=== PATIENT | female | born 1945 | race Caucasian/White ===

== ENCOUNTER → 2016-05-21 17:08 | Outpatient (CLI) | payer MEDICARE ==
[2010-07-24 06:50] VITALS: BMI 35.2
== END | disposition home or self-care (01) ==
LOC: D.MAMMO 10:45
DX: Z12.31 Encounter for screening mammogram for malignant neoplasm of breast (principal)

== ENCOUNTER 2016-07-03 17:02 | Emergency (ER) | payer MEDICARE ==
[2010-07-24 06:50] VITALS: BMI 35.2
[2016-07-03 19:07] LABS: BASOPHILS 0.2 % (0.0-2.0); EOSINOPHILS 0.2 % (0-7); HEMATOCRIT 43.3 % (36.0-48.0); HEMOGLOBIN 14.2 g/dL (12-16); IMMATURE GRANULOCYTES 0.2 % (0-5); LYMPHOCYTES 12.8 % (15-50); MCH 29.6 pg (26.0-34.0); MCHC 32.8 g/dL (31.0-37.0); MCV 90.4 fL (80.0-100.0); MEAN PLATELET VOLUME 10.7 fL (7.4-10.4); MONOCYTES 2.3 % (2-11); NEUTROPHILS 84.3 % (40-80); PLATELET COUNT 241 10x3/uL (130-400); RBC 4.79 10x6/uL (4.00-5.40); RDW 12.8 % (11.5-14.5); WBC 11.1 10x3/uL (4.8-10.8)
[2016-07-03 19:20] LABS: APPEARANCE CLOUDY (CLEAR); BILIRUBIN NEGATIVE (NEGATIVE); COLOR YELLOW (YELLOW); GLUCOSE NEGATIVE (NEGATIVE); KETONE SMALL mg/dL (NEGATIVE); LEUKOCYTE ESTERASE NEGATIVE (NEGATIVE); NITRITE NEGATIVE (NEGATIVE); PROTEIN TRACE mg/dL (NEGATIVE); SPECIFIC GRAVITY 1.025 (1.005-1.020); UROBILINOGEN NORMAL (NORMAL)
[2016-07-03 19:22] LABS: AMORPHOUS SEDIMENT >1+ /lpf (NONE SEEN); BACTERIA MODERATE /hpf (NONE SEEN); EPITHELIAL CELLS 0-5 /hpf (0-5); MUCUS <1+ /lpf (NONE SEEN); RED CELLS - URINE 0-5 /hpf (0-5); WHITE CELLS - URINE 0-5 /hpf (0-5)
[2016-07-03 19:35] LABS: ALBUMIN 4.3 g/dL (3.4-5.0); ALKALINE PHOSPHATASE 64 U/L (46-116); ALT (SGPT) 28 U/L (10-68); AMYLASE - SERUM 59 U/L (25-115); BILIRUBIN - TOTAL 0.41 mg/dL (0.2-1.3); CALC OSMOLALITY 290 mosm/kg (275-300); CALCIUM 9.2 mg/dL (8.5-10.1); CARBON DIOXIDE 27.3 mmol/L (21.0-32.0); CHLORIDE - SERUM 103 mmol/L (98-107); CREATININE - SERUM 0.7 mg/dL (0.6-1.3); GLUCOSE 164 mg/dL (74-106); LIPASE 302 U/L (73-393); POTASSIUM - SERUM 3.7 mmol/L (3.5-5.1); PROTEIN - SERUM 7.4 g/dL (6.4-8.2); SODIUM 142 mmol/L (136-145); UREA NITROGEN 24 mg/dL (7-18); eGFR NON AFRICAN AMERICAN 88 mL/min (90-120)
== END 2016-07-03 21:13 | disposition home or self-care (01) ==
LOC: D.ER 17:02
PROVIDERS: Nurse Practitioner Family
DX: K52.9 Noninfective gastroenteritis and colitis, unspecified (principal); E86.0 Dehydration; R11.10 Vomiting, unspecified; E11.9 Type 2 diabetes mellitus without complications; I10 Essential (primary) hypertension

== ENCOUNTER → 2017-04-06 08:43 | Outpatient (CLI) | payer MEDICARE ==
[2010-07-24 06:50] VITALS: BMI 35.2
--- NOTE | 2017-04-14 12:15 | EC ---
PATIENT:MIKEY COLEMAN DATE OF SERVICE: 04/06/17 SEX: F MEDICAL RECORD: [id number] DATE OF : [birth year] LOCATION:D[facility] AGE OF PATIENT: 71 ADMISSION DATE: 04/06/17 REFERRING PHYSICIAN: INTERPRETING PHYSICIAN: SUSAN BOSE MD ECHOCARDIOGRAM REPORT ECHO CHARGES 4 ECHO COMPLETE CLINICAL DIAGNOSIS: PALPITATIONS ECHOCARDIOGRAPHIC MEASUREMENTS (adult normal given) AC root (d.<3.7cm) 3.1 cm LV Septum d (<1.2 cm> 1.3 cm Valve Excursion 2.0 cm LV Septum (systole) 2.2 cm Left Atria (s.<4.0cm> 4.5 cm LVPW d(<1.2cm) 1.3 cm RV (d.<2.3cm) 3.0 cm LVPW (sytole) 2.1 cm LV diastole(<5.6CM) 4.6 cm MV E-F(>70mm/sec) cm LV systole 2.0 cm LVOT Diameter 1.9 cm MV exc.(>10mm) cm Est.ejection fraction (50-75%) % Pericardial Effusion N DOPPLER: LVIT cm/sec A 54.0 cm/sec E 63.0 cm/sec LA cm/sec RVSP 33.0 mmHg LVOT 114 cm/sec AOP1/2T m/s Asc. Ao 136 cm/sec RVOT 64.0 cm/sec RA cm/sec PA 90.0 cm/sec AV Gradient Peak 7.4 mmHg AV Mean 4.2 mmHg AV Area 2.2 cm MV Gradient Peak 3.0 mmHg MV Mean 1.2 mmHg MV Area cm COMMENTS: Merchandise Support Associate: Rene ALEXANDREOE Automatic Developer: Aimee Miner TAPE# PACS DATE OF SERVICE: 04/06/2017 Echocardiogram FINDINGS: 1. Left ventricular chamber size is within normal limits. Left ventricular systolic function is normal. Overall ejection fraction estimated at 55%. 2. Left atrium is enlarged at 4.5 cm. Right atrium and right ventricular chamber sizes are as well mildly dilated. 3. Valvular structures have normal structure and motion. ECHOCARDIOGRAM REPORT [id number] MIKEY COLEMAN 4. Doppler interrogation reveals mild mitral regurgitation, mild tricuspid regurgitation, no other valvular insufficiency or stenosis. 5. No evidence of pericardial effusion or left ventricular thrombus. Pulmonary systolic pressure is normal estimated at 33 mmHg. TRANSINT:[id number] Voice Confirmation ID: [id number] DOCUMENT ID: [id number] SUSAN BOSE MD at 1215 CC: [id number] DICTATION DATE: 04/09/17 1258 ADVERTISING EXECUTIVE: 04/09/17 1324 DEP CLI 04/06/[address] [id number]
== END | disposition home or self-care (01) ==
LOC: D.ECHO 08:43
DX: R40.0 Somnolence (principal); G47.30 Sleep apnea, unspecified; R00.2 Palpitations; R06.83 Snoring

== ENCOUNTER → 2017-05-19 12:32 | Outpatient (CLI) | payer MEDICARE ==
[2010-07-24 06:50] VITALS: BMI 35.2
== END | disposition home or self-care (01) ==
LOC: D.US 05-01 11:30
DX: M79.604 Pain in right leg (principal); M79.605 Pain in left leg

== ENCOUNTER → 2017-10-09 09:06 | Outpatient (CLI) | payer MEDICARE ==
[2010-07-24 06:50] VITALS: BMI 35.2
== END | disposition home or self-care (01) ==
LOC: D.MRI 09:06
DX: M54.31 Sciatica, right side (principal)

== ENCOUNTER → 2017-10-14 14:18 | Outpatient (CLI) | payer MEDICARE ==
[2010-07-24 06:50] VITALS: BMI 35.2
== END | disposition home or self-care (01) ==
LOC: D.CT 14:18
DX: R05 Cough (principal)

== ENCOUNTER → 2017-11-25 09:50 | Outpatient (CLI) | payer MEDICARE ==
[2010-07-24 06:50] VITALS: BMI 35.2
== END | disposition home or self-care (01) ==
LOC: D.RAD 09:50
DX: M25.551 Pain in right hip (principal)

== ENCOUNTER → 2018-03-04 16:44 | Outpatient (CLI) | payer MEDICARE ==
[2010-07-24 06:50] VITALS: BMI 35.2
== END | disposition home or self-care (01) ==
LOC: D.MAMMO 10:00
DX: Z12.31 Encounter for screening mammogram for malignant neoplasm of breast (principal)

== ENCOUNTER → 2018-04-22 10:36 | Outpatient (CLI) | payer MEDICARE ==
[2010-07-24 06:50] VITALS: BMI 35.2
== END | disposition home or self-care (01) ==
LOC: D.CT 10:30
DX: M54.2 Cervicalgia (principal)

== ENCOUNTER 2020-08-27 09:15 | Outpatient (CLI) | payer MEDICARE ==
[2010-07-24 06:50] VITALS: BMI 35.2
== END 2020-08-27 23:59 | disposition home or self-care (01) ==
LOC: D.MAMMO 09:15
PROVIDERS: ATTEND Family Medicine Adult Medicine
DX: Z12.31 Encounter for screening mammogram for malignant neoplasm of breast (principal)